=== PATIENT | male | born 1970 | race Two or more races ===

== ENCOUNTER 2023-07-10 12:02 | Inpatient (IN) | payer MEDICARE, OTHER ==
[~2023-07-10] VITALS: Ht 193 cm; Wt 184.4 kg
[2023-07-10] MEDS ORDERED: GABA-532 PO (13:01)
[2023-07-10] MEDS ORDERED: RIVA10TA PO (13:01)
[2023-07-10] MEDS ORDERED: HYDR-4076 PO (13:01)
[2023-07-10] MEDS ORDERED: ERGO500093 PO (13:01)
[2023-07-10] MEDS ORDERED: INSU100C10 SQ (13:01)
[2023-07-10] MEDS ORDERED: TAMS-12 PO (13:01)
[2023-07-10] MEDS ORDERED: CARV12.52 PO (13:01)
[2023-07-10] MEDS ORDERED: FLUT1BLS IH (13:01)
[2023-07-10] MEDS ORDERED: LOSA100T31 PO (13:01)
[2023-07-10] MEDS ORDERED: ASCO-352 PO (13:01)
[2023-07-10] MEDS ORDERED: SEMA1PEN SQ (13:01)
[2023-07-10] MEDS ORDERED: ZINC50TA69 PO (13:01)
[2023-07-10] MEDS ORDERED: TIOT18CA3 IH (13:01)
[2023-07-10] MEDS ORDERED: INSU100V27 SQ ×2 (13:01)
[2023-07-10] MEDS ORDERED: AMIO200T5 PO (13:01)
[2023-07-10] MEDS ORDERED: MULT-447 PO (13:01)
[2023-07-10] MEDS ORDERED: CYCL5TAB PO (13:01)
[2023-07-10] MEDS ORDERED: INSU100V7 SQ (13:01)
[2023-07-10] MEDS ORDERED: ACET-868 PO (13:01)
[2023-07-10] MEDS ORDERED: ALBU2.5V38 IH (13:01)
[2023-07-10] MEDS ORDERED: POLY17PO4 PO (13:01)
[2023-07-10] MEDS ORDERED: CLON1PAT TD (13:01)
[2023-07-10] MEDS ORDERED: FURO-144 PO (13:01)
[2023-07-10] MEDS ORDERED: ASPI-1169 PO (13:01)
[2023-07-10] MEDS ORDERED: HYDR-4077 PO (13:01)
[2023-07-10] MEDS ORDERED: XEROFORM (13:01)
[2023-07-10] MEDS ORDERED: ROSU20TA2 PO (13:01)
[2023-07-10] MEDS ORDERED: ONDA4TAB5 PO (13:01)
[2023-07-10] MEDS ORDERED: OXYC5TAB3 PO (13:01)
[2023-07-10] MEDS ORDERED: SENN-261 PO (13:01)
[2023-07-10] MEDS ORDERED: FAMO20TA8 PO (13:01)
[2023-07-10 13:30] LABS: BASOPHILS % (AUTO) 0.6 % (0.0-2.0); EOSINOPHILS # (AUTO) 0.1 K/uL (0.0-0.7); EOSINOPHILS % (AUTO) 2.4 % (0.0-6.0); HEMATOCRIT 34 % (39-51); HEMOGLOBIN 10.7 g/dL (13.5-17.5); LYMPHOCYTES # (AUTO) 0.4 K/uL (0.8-4.8); LYMPHOCYTES % (AUTO) 5.9 % (20.0-44.0); MEAN CORPUSCULAR HEMOGLOBIN 25 PG (26.0-33.0); MEAN CORPUSCULAR HGB CONC 31 g/dl (31.0-36.0); MEAN CORPUSCULAR VOLUME 81 fL (80-96); MONOCYTES # (AUTO) 0.5 K/uL (0.1-1.30); MONOCYTES % (AUTO) 8.7 % (2.0-12.0); NEUTROPHILS # (AUTO) 5.1 K/uL (1.8-8.9); NEUTROPHILS % (AUTO) 82.4 % (43.0-81.0); PLATELET COUNT (AUTO) 174 K/uL (150-450); RED BLOOD CELL COUNT(AUTO) 4.22 MIL/uL (4.5-6.0); RED CELL DISTRIBUTION WIDTH 17.2 % (11.5-15.0); WHITE BLOOD COUNT (AUTO) 6.2 K/uL (4.3-11.0)
[2023-07-10 13:47] LABS: INR 1.42 (0.91-1.10); PARTIAL THROMBOPLASTIN TIME 32.2 SEC (24.3-34.3); PROTHROMBIN TIME 14.7 SECS (9.2-11.1)
[2023-07-10 13:50] LABS: CALCIUM, SERUM 8.3 mg/dL (8.5-10.1); CREATININE 1.3 mg/dL (0.6-1.3)
[2023-07-10 13:56] LABS: ALBUMIN 3.2 g/dL (3.4-5.0); BILIRUBIN,DIRECT 0.4 mg/dL (0.0-0.2); TOTAL PROTEIN, SERUM 7.4 g/dL (6.4-8.2)
[2023-07-10] MEDS ORDERED: VANCOMYCIN 1 GM in IV D5W 250 ML IV ONE (15:00)
[2023-07-10] MEDS ORDERED: PIPERACILLIN /TAZOBACTAM 3.375 G in IV D5W 50 ML IV ONE (15:00)
[2023-07-10] MEDS ORDERED: Z GUARD REMEDY 4 OZ OINT TP PRN (17:00)
[2023-07-10] MEDS ORDERED: HYDROCODONE/APAP 5/325MG TABLET PO PRN (17:00)
[2023-07-10] MEDS ORDERED: ZOLPIDEM TARTRATE 5 MG TABLET PO PRN (17:00)
[2023-07-10] MEDS ORDERED: DEXTROSE 50%-WATER 50 ML DISP.SYRIN IV PRN (17:00)
[2023-07-10] MEDS ORDERED: ONDANSETRON HCL/PF 4 MG/2 ML VIAL IVP PRN (17:00)
[2023-07-10] MEDS ORDERED: MAG HYDROX/AL HYDROX/SIMETH 30 ML UDC PO PRN (17:00)
[2023-07-10] MEDS ORDERED: MAGNESIUM HYDROXIDE 30 ML UDC PO PRN (17:00)
[2023-07-10 18:09] LABS: PROTEIN, BODY FLUID 4.1 G/DL
[2023-07-10] MEDS: ACETAMINOPHEN 325 MG TABLET PO PRN (18:58)
[2023-07-10 19:19] LABS: APPEARANCE,URINE CLEAR (CLEAR); BILIRUBIN,URINE 1+ (NEGATIVE); BLOOD, URINE NEGATIVE Ery/uL (NEGATIVE); COLOR,URINE YELLOW (YELLOW); KETONES,URINE 1+ mg/dL (NEGATIVE); LEUKOCYTE ESTERASE ,URINE NEGATIVE (NEGATIVE); NITRITE, URINE NEGATIVE (NEGATIVE); PROTEIN,URINE 1+ mg/dl (NEGATIVE); UGLUCOSE NEGATIVE (NEGATIVE)
[2023-07-10 19:46] LABS: APPEARANCE,SPUN,BODY FLUID CLEAR (CLEAR); TOTAL VOLUME,BODY FLUID 2950 mL
[2023-07-10 19:47] LABS: WBC, BODY FLUID 478 /cu. mm. (0-200)
[2023-07-10 19:56] LABS: MACROPHAGES, BODY FLUID 22; MONOCYTES,BODY FLUID 2 %; POLYNUCLEAR, BODY FLUID 18 % (0-25)
[2023-07-10 20:12] LABS: ADD URINE CULTURE NO; BACTERIA,URINE None seen /HPF (None Seen); FINE GRANULAR CASTS,URINE Few /LPF (None Seen); MUCUS,URINE Few /LPF (None Seen); RBC,URINE 0-2 /HPF (0-2); SQUAMOUS EPITHELIAL CELL,UR None Seen /HPF (None Seen); WBC,URINE NONE SEEN /HPF (0-3); YEAST,URINE None Seen /HPF (None Seen)
[2023-07-10 23:30] VITALS: BP 124/83; TEMP 98.2; O2SAT 95
[2023-07-11] VITALS (7 sets, daily range): BP systolic 115–153; BP diastolic 91–99; TEMP 98.1–98.2; O2SAT 94–99
[2023-07-11] MEDS ORDERED: PIPERACI/TAZO 3.375GM/D5W 50ML PB IV ONE ×2 (00:10→05:07)
[2023-07-11] MEDS: BLOOD SUGAR DIAGNOSTIC 1 EACH STRIP VI SCH ×5 (00:13→21:52)
[2023-07-11] MEDS: ZOSYN IVPB 3.375 G in IV D5W 50ml IV SCH ×4 (00:13→17:33)
[2023-07-11] MEDS: *INSULIN REGULAR(HUMULIN R)HUM 100 UNIT/ML VIAL SQ PRN (00:14)
[2023-07-11] MEDS ORDERED: VANCOMYCIN 1.25 GM in IV D5W 250 ML IV SCH (03:00)
[2023-07-11] MEDS ORDERED: VANCOMYCIN 1 GM /D5W 250 ML PB IV ONE (03:13)
[2023-07-11] MEDS: ACETAMINOPHEN 325 MG TABLET PO PRN (06:27)
[2023-07-11] MEDS: INSULIN REGULAR, HUMAN 100 UNIT/ML 3 ML VIAL SQ PRN ×2 (06:47→17:36)
[2023-07-11 06:49] LABS: BASOPHILS % (AUTO) 0.5 % (0.0-2.0); EOSINOPHILS # (AUTO) 0.2 K/uL (0.0-0.7); EOSINOPHILS % (AUTO) 2.8 % (0.0-6.0); HEMATOCRIT 33 % (39-51); HEMOGLOBIN 10.5 g/dL (13.5-17.5); LYMPHOCYTES # (AUTO) 0.4 K/uL (0.8-4.8); LYMPHOCYTES % (AUTO) 6.8 % (20.0-44.0); MEAN CORPUSCULAR HEMOGLOBIN 26 PG (26.0-33.0); MEAN CORPUSCULAR HGB CONC 32 g/dl (31.0-36.0); MEAN CORPUSCULAR VOLUME 80 fL (80-96); MONOCYTES # (AUTO) 0.4 K/uL (0.1-1.30); MONOCYTES % (AUTO) 6.5 % (2.0-12.0); NEUTROPHILS # (AUTO) 5.1 K/uL (1.8-8.9); NEUTROPHILS % (AUTO) 83.4 % (43.0-81.0); PLATELET COUNT (AUTO) 182 K/uL (150-450); RED BLOOD CELL COUNT(AUTO) 4.12 MIL/uL (4.5-6.0); RED CELL DISTRIBUTION WIDTH 16.7 % (11.5-15.0); WHITE BLOOD COUNT (AUTO) 6.2 K/uL (4.3-11.0)
[2023-07-11 07:34] LABS: CALCIUM, SERUM 8.3 mg/dL (8.5-10.1); CREATININE 1.5 mg/dL (0.6-1.3); PHOSPHORUS 2.8 mg/dL (2.5-4.9); POTASSIUM 3.2 mmol/L (3.5-5.1)
[2023-07-11] MEDS: PANTOPRAZOLE 40 MG TABLET.DR PO SCH (09:32)
[2023-07-11] MEDS: ENOXAPARIN SODIUM 40 MG/0.4 ML DISP.SYRIN SQ SCH (09:37)
[2023-07-11] MEDS ORDERED: ALBUTEROL FS 2.5 MG/3 ML VIAL.NEB NEB PRN (10:00)
[2023-07-11] MEDS ORDERED: hydrALAZINE HCL 25 MG TABLET PO PRN (10:00)
[2023-07-11 11:27] LABS: THYROID STIMULATING HORMONE 2.581 uIU/mL (0.358-3.74)
[2023-07-11] MEDS: FUROSEMIDE 40 MG/4 ML VIAL IV SCH ×3 (11:31→17:44)
[2023-07-11] MEDS: AMIODARONE HCL 200 MG TABLET PO SCH (11:33)
[2023-07-11] MEDS: FAMOTIDINE (20 MG) 20 MG TABLET PO PRN (11:33)
[2023-07-11] MEDS: ASPIRIN 81 MG TAB.CHEW PO SCH (11:33)
[2023-07-11] MEDS: CARVEDILOL 12.5 MG TABLET PO SCH ×2 (11:33→17:34)
[2023-07-11] MEDS: POTASSIUM CHLORIDE 20 MEQ TAB.PRT.SR PO SCH ×3 (11:34→13:41)
[2023-07-11] MEDS: hydrALAZINE HCL 50 MG TABLET PO SCH ×2 (11:34→17:34)
[2023-07-11] MEDS: TAMSULOSIN 0.4 MG CAP.SR.24H PO SCH ×2 (11:37→17:34)
[2023-07-11] MEDS: MUPIROCIN OINT 2% 22 GM TUBE TP SCH (11:58)
[2023-07-11] MEDS: FLUTICASONE/VILANTEROL 1 EACH BLST.W.DEV IH SCH (11:58)
[2023-07-11] MEDS: DAKINS QUARTER STRENGTH (0.125%) 480 ML BOTTLE TOP SCH (13:42)
[2023-07-11] MEDS: GABAPENTIN 300 MG CAPSULE PO SCH ×2 (13:42→17:34)
[2023-07-11] MEDS: VANCOMYCIN 1 GM in IV D5W 250 ML IV SCH (14:51)
[2023-07-11] MEDS: RIVAROXABAN 10 MG TABLET PO SCH (17:35)
[2023-07-11] MEDS: IPRATROPIUM NEB FS 0.5 MG/2.5 ML AMPUL.NEB NEB SCH (20:46)
[2023-07-11] MEDS: ATORVASTATIN 40 MG TABLET PO SCH (21:52)
[2023-07-12] VITALS (10 sets, daily range): BP systolic 111–146; BP diastolic 74–100; TEMP 98.4–99; O2SAT 93–100
[2023-07-12] MEDS: ZOSYN IVPB 3.375 G in IV D5W 50ml IV SCH ×4 (00:06→18:29)
[2023-07-12] MEDS: IPRATROPIUM NEB FS 0.5 MG/2.5 ML AMPUL.NEB NEB SCH ×4 (01:37→20:11)
[2023-07-12 02:37] LABS: BASOPHILS # (AUTO) 0.1 K/uL (0.0-0.2); BASOPHILS % (AUTO) 0.8 % (0.0-2.0); EOSINOPHILS # (AUTO) 0.2 K/uL (0.0-0.7); EOSINOPHILS % (AUTO) 2.5 % (0.0-6.0); HEMATOCRIT 36 % (39-51); HEMOGLOBIN 11.1 g/dL (13.5-17.5); LYMPHOCYTES # (AUTO) 0.5 K/uL (0.8-4.8); LYMPHOCYTES % (AUTO) 8.1 % (20.0-44.0); MEAN CORPUSCULAR HEMOGLOBIN 26 PG (26.0-33.0); MEAN CORPUSCULAR HGB CONC 31 g/dl (31.0-36.0); MEAN CORPUSCULAR VOLUME 84 fL (80-96); MONOCYTES # (AUTO) 0.6 K/uL (0.1-1.30); MONOCYTES % (AUTO) 8.8 % (2.0-12.0); NEUTROPHILS # (AUTO) 5.1 K/uL (1.8-8.9); NEUTROPHILS % (AUTO) 79.8 % (43.0-81.0); PLATELET COUNT (AUTO) 180 K/uL (150-450); RED BLOOD CELL COUNT(AUTO) 4.33 MIL/uL (4.5-6.0); RED CELL DISTRIBUTION WIDTH 18.1 % (11.5-15.0); WHITE BLOOD COUNT (AUTO) 6.4 K/uL (4.3-11.0)
[2023-07-12 02:49] LABS: ALBUMIN 3.1 g/dL (3.4-5.0); BILIRUBIN,TOTAL 0.8 mg/dL (0.2-1.0); CALCIUM, SERUM 8.1 mg/dL (8.5-10.1); CREATININE 1.5 mg/dL (0.6-1.3); MAGNESIUM 1.9 mg/dL (1.8-2.4); PHOSPHORUS 2.9 mg/dL (2.5-4.9); POTASSIUM 3.6 mmol/L (3.5-5.1); TOTAL PROTEIN, SERUM 7.4 g/dL (6.4-8.2)
[2023-07-12] MEDS: VANCOMYCIN 1 GM in IV D5W 250 ML IV SCH ×2 (03:36→15:31)
[2023-07-12 05:08] LABS: *SPE A/G RATIO 0.7 (0.7-1.7); *SPE ALBUMIN 2.8 g/dL (2.9-4.4); *SPE ALPHA-1-GLOBULIN 0.4 g/dL (0.0-0.4); *SPE ALPHA-2-GLOBULIN 0.8 g/dL (0.4-1.0); *SPE M-SPIKE Not Observed g/dL (Not Observed); *SPE PROTEIN TOTAL 6.8 g/dL (6.0-8.5); *SPEGAMMA GLOBULIN 1.7 g/dL (0.4-1.8)
[2023-07-12] MEDS: BLOOD SUGAR DIAGNOSTIC 1 EACH STRIP VI SCH ×4 (06:08→21:27)
[2023-07-12] MEDS: INSULIN REGULAR, HUMAN 100 UNIT/ML 3 ML VIAL SQ PRN ×3 (06:56→18:14)
[2023-07-12] MEDS: ENOXAPARIN SODIUM 40 MG/0.4 ML DISP.SYRIN SQ SCH (10:15)
[2023-07-12] MEDS: ASPIRIN 81 MG TAB.CHEW PO SCH (10:18)
[2023-07-12] MEDS: AMIODARONE HCL 200 MG TABLET PO SCH (10:19)
[2023-07-12] MEDS: GABAPENTIN 300 MG CAPSULE PO SCH ×3 (10:19→18:27)
[2023-07-12] MEDS: FAMOTIDINE (20 MG) 20 MG TABLET PO PRN (10:19)
[2023-07-12] MEDS: TAMSULOSIN 0.4 MG CAP.SR.24H PO SCH ×2 (10:19→18:27)
[2023-07-12] MEDS: CARVEDILOL 12.5 MG TABLET PO SCH ×2 (10:20→18:27)
[2023-07-12] MEDS: LOSARTAN POTASSIUM 50 MG TABLET PO SCH (10:20)
[2023-07-12] MEDS: PANTOPRAZOLE 40 MG TABLET.DR PO SCH (10:20)
[2023-07-12] MEDS: FLUTICASONE/VILANTEROL 1 EACH BLST.W.DEV IH SCH (10:33)
[2023-07-12] MEDS: MUPIROCIN OINT 2% 22 GM TUBE TP SCH (10:36)
[2023-07-12] MEDS: DAKINS QUARTER STRENGTH (0.125%) 480 ML BOTTLE TOP SCH (10:36)
[2023-07-12] MEDS: hydrALAZINE HCL 50 MG TABLET PO SCH ×2 (13:00→18:36)
[2023-07-12] MEDS: RIVAROXABAN 10 MG TABLET PO SCH (18:26)
[2023-07-12] MEDS: ATORVASTATIN 40 MG TABLET PO SCH (21:26)
[2023-07-12] MEDS: *INSULIN REGULAR(HUMULIN R)HUM 100 UNIT/ML VIAL SQ PRN (21:59)
[2023-07-13] VITALS (7 sets, daily range): BP systolic 103–115; BP diastolic 76–90; TEMP 97.6–98.6; O2SAT 92–99
[2023-07-13] MEDS: ZOSYN IVPB 3.375 G in IV D5W 50ml IV SCH ×5 (00:11→23:20)
[2023-07-13] MEDS: IPRATROPIUM NEB FS 0.5 MG/2.5 ML AMPUL.NEB NEB SCH ×4 (01:30→19:20)
[2023-07-13] MEDS: VANCOMYCIN 1 GM in IV D5W 250 ML IV SCH ×2 (03:23→15:44)
[2023-07-13] MEDS: BLOOD SUGAR DIAGNOSTIC 1 EACH STRIP VI SCH ×4 (07:33→22:47)
[2023-07-13] MEDS: INSULIN REGULAR, HUMAN 100 UNIT/ML 3 ML VIAL SQ PRN ×2 (07:34→16:36)
[2023-07-13 07:37] LABS: CALCIUM, SERUM 8.1 mg/dL (8.5-10.1); CREATININE 1.6 mg/dL (0.6-1.3); POTASSIUM 3.2 mmol/L (3.5-5.1)
[2023-07-13] MEDS: ENOXAPARIN SODIUM 40 MG/0.4 ML DISP.SYRIN SQ SCH (08:09)
[2023-07-13] MEDS: GABAPENTIN 300 MG CAPSULE PO SCH ×3 (08:10→16:16)
[2023-07-13] MEDS: PANTOPRAZOLE 40 MG TABLET.DR PO SCH (08:10)
[2023-07-13] MEDS: TAMSULOSIN 0.4 MG CAP.SR.24H PO SCH ×2 (08:10→16:16)
[2023-07-13] MEDS: ASPIRIN 81 MG TAB.CHEW PO SCH (08:11)
[2023-07-13] MEDS: AMIODARONE HCL 200 MG TABLET PO SCH (08:11)
[2023-07-13] MEDS: FLUTICASONE/VILANTEROL 1 EACH BLST.W.DEV IH SCH (08:37)
[2023-07-13] MEDS: hydrALAZINE HCL 50 MG TABLET PO SCH ×2 (09:00→16:17)
[2023-07-13] MEDS: LOSARTAN POTASSIUM 50 MG TABLET PO SCH (09:00)
[2023-07-13] MEDS: CARVEDILOL 12.5 MG TABLET PO SCH ×2 (09:00→16:17)
[2023-07-13] MEDS: MUPIROCIN OINT 2% 22 GM TUBE TP SCH (09:48)
[2023-07-13] MEDS: DAKINS QUARTER STRENGTH (0.125%) 480 ML BOTTLE TOP SCH (09:48)
[2023-07-13] MEDS ORDERED: POTASSIUM CHLORIDE 10 MEQ TABLET.SA PO ONE (11:00)
[2023-07-13] MEDS: SOD FERRIC GLUC 125 MG in IV NS 0.9% 100 ML IV SCH (14:38)
[2023-07-13] MEDS: RIVAROXABAN 10 MG TABLET PO SCH (17:18)
[2023-07-13] MEDS: ATORVASTATIN 40 MG TABLET PO SCH (22:46)
[2023-07-13] MEDS: *INSULIN REGULAR(HUMULIN R)HUM 100 UNIT/ML VIAL SQ PRN (22:51)
[2023-07-14] VITALS (12 sets, daily range): BP systolic 126–140; BP diastolic 89–98; TEMP 93.6–98.2; O2SAT 86–99
[2023-07-14] MEDS: IPRATROPIUM NEB FS 0.5 MG/2.5 ML AMPUL.NEB NEB SCH ×4 (00:38→20:14)
[2023-07-14] MEDS: VANCOMYCIN 1 GM in IV D5W 250 ML IV SCH ×2 (03:43→16:39)
[2023-07-14] MEDS: ZOSYN IVPB 3.375 G in IV D5W 50ml IV SCH ×4 (05:55→23:55)
[2023-07-14] MEDS: BLOOD SUGAR DIAGNOSTIC 1 EACH STRIP VI SCH ×4 (06:36→21:40)
[2023-07-14] MEDS: INSULIN REGULAR, HUMAN 100 UNIT/ML 3 ML VIAL SQ PRN ×3 (06:40→17:39)
[2023-07-14 08:17] LABS: CALCIUM, SERUM 8.6 mg/dL (8.5-10.1); CREATININE 1.6 mg/dL (0.6-1.3); POTASSIUM 3.6 mmol/L (3.5-5.1)
[2023-07-14] MEDS: CARVEDILOL 12.5 MG TABLET PO SCH ×3 (08:40→17:37)
[2023-07-14] MEDS: TAMSULOSIN 0.4 MG CAP.SR.24H PO SCH ×2 (08:40→17:33)
[2023-07-14] MEDS: ASPIRIN 81 MG TAB.CHEW PO SCH (08:40)
[2023-07-14] MEDS: PANTOPRAZOLE 40 MG TABLET.DR PO SCH (08:40)
[2023-07-14] MEDS: FAMOTIDINE (20 MG) 20 MG TABLET PO PRN (08:41)
[2023-07-14] MEDS: LOSARTAN POTASSIUM 50 MG TABLET PO SCH (08:41)
[2023-07-14] MEDS: GABAPENTIN 300 MG CAPSULE PO SCH ×3 (08:41→17:33)
[2023-07-14] MEDS: AMIODARONE HCL 200 MG TABLET PO SCH (08:41)
[2023-07-14] MEDS: DAKINS QUARTER STRENGTH (0.125%) 480 ML BOTTLE TOP SCH (08:42)
[2023-07-14] MEDS: FLUTICASONE/VILANTEROL 1 EACH BLST.W.DEV IH SCH (08:43)
[2023-07-14] MEDS: ENOXAPARIN SODIUM 40 MG/0.4 ML DISP.SYRIN SQ SCH (08:47)
[2023-07-14] MEDS: hydrALAZINE HCL 50 MG TABLET PO SCH ×2 (08:47→17:36)
[2023-07-14] MEDS: MUPIROCIN OINT 2% 22 GM TUBE TP SCH (10:02)
[2023-07-14] MEDS: SOD FERRIC GLUC 125 MG in IV NS 0.9% 100 ML IV SCH (15:30)
[2023-07-14] MEDS: RIVAROXABAN 10 MG TABLET PO SCH (17:36)
[2023-07-14] MEDS: ATORVASTATIN 40 MG TABLET PO SCH (21:39)
[2023-07-14] MEDS: *INSULIN REGULAR(HUMULIN R)HUM 100 UNIT/ML VIAL SQ PRN (21:43)
[2023-07-15] VITALS (9 sets, daily range): BP systolic 131–146; BP diastolic 86–94; TEMP 97.3–98.1; O2SAT 90–100
[2023-07-15] MEDS: IPRATROPIUM NEB FS 0.5 MG/2.5 ML AMPUL.NEB NEB SCH ×4 (01:30→20:11)
[2023-07-15] MEDS: VANCOMYCIN 1 GM in IV D5W 250 ML IV SCH ×2 (03:08→15:09)
[2023-07-15] MEDS: ZOSYN IVPB 3.375 G in IV D5W 50ml IV SCH ×4 (06:05→23:03)
[2023-07-15] MEDS: BLOOD SUGAR DIAGNOSTIC 1 EACH STRIP VI SCH ×4 (06:15→22:12)
[2023-07-15] MEDS: INSULIN REGULAR, HUMAN 100 UNIT/ML 3 ML VIAL SQ PRN ×3 (06:19→16:57)
[2023-07-15 07:24] LABS: CALCIUM, SERUM 8.4 mg/dL (8.5-10.1); CREATININE 1.6 mg/dL (0.6-1.3); POTASSIUM 3.7 mmol/L (3.5-5.1)
[2023-07-15] MEDS: ENOXAPARIN SODIUM 40 MG/0.4 ML DISP.SYRIN SQ SCH (08:52)
[2023-07-15] MEDS: PANTOPRAZOLE 40 MG TABLET.DR PO SCH (08:54)
[2023-07-15] MEDS: LOSARTAN POTASSIUM 50 MG TABLET PO SCH (08:54)
[2023-07-15] MEDS: GABAPENTIN 300 MG CAPSULE PO SCH ×3 (08:54→17:12)
[2023-07-15] MEDS: TAMSULOSIN 0.4 MG CAP.SR.24H PO SCH ×2 (08:54→17:12)
[2023-07-15] MEDS: ASPIRIN 81 MG TAB.CHEW PO SCH (08:54)
[2023-07-15] MEDS: hydrALAZINE HCL 50 MG TABLET PO SCH ×2 (08:54→17:12)
[2023-07-15] MEDS: CARVEDILOL 12.5 MG TABLET PO SCH ×2 (08:55→17:13)
[2023-07-15] MEDS: AMIODARONE HCL 200 MG TABLET PO SCH (08:55)
[2023-07-15] MEDS: DAKINS QUARTER STRENGTH (0.125%) 480 ML BOTTLE TOP SCH (08:56)
[2023-07-15] MEDS: FLUTICASONE/VILANTEROL 1 EACH BLST.W.DEV IH SCH (08:56)
[2023-07-15] MEDS: MUPIROCIN OINT 2% 22 GM TUBE TP SCH (08:59)
[2023-07-15] MEDS: SOD FERRIC GLUC 125 MG in IV NS 0.9% 100 ML IV SCH (14:08)
[2023-07-15] MEDS: RIVAROXABAN 10 MG TABLET PO SCH (17:13)
[2023-07-15] MEDS: ATORVASTATIN 40 MG TABLET PO SCH (21:24)
[2023-07-15] MEDS: *INSULIN REGULAR(HUMULIN R)HUM 100 UNIT/ML VIAL SQ PRN (22:11)
[2023-07-16] MEDS: IPRATROPIUM NEB FS 0.5 MG/2.5 ML AMPUL.NEB NEB SCH ×4 (01:30→19:30)
[2023-07-16] MEDS: VANCOMYCIN 1 GM in IV D5W 250 ML IV SCH ×2 (02:35→15:43)
[2023-07-16] MEDS: ZOSYN IVPB 3.375 G in IV D5W 50ml IV SCH ×4 (06:07→23:06)
[2023-07-16] MEDS: ACETAMINOPHEN 325 MG TABLET PO PRN (06:07)
[2023-07-16] MEDS: BLOOD SUGAR DIAGNOSTIC 1 EACH STRIP VI SCH ×4 (06:31→22:57)
[2023-07-16] MEDS: INSULIN REGULAR, HUMAN 100 UNIT/ML 3 ML VIAL SQ PRN ×3 (06:32→17:28)
[2023-07-16 07:30] VITALS: BP 113/60; TEMP 98.2; O2SAT 91
[2023-07-16 07:35] LABS: CALCIUM, SERUM 8.5 mg/dL (8.5-10.1); CREATININE 1.6 mg/dL (0.6-1.3); POTASSIUM 3.7 mmol/L (3.5-5.1)
[2023-07-16] MEDS: PANTOPRAZOLE 40 MG TABLET.DR PO SCH (07:51)
[2023-07-16] MEDS: FLUTICASONE/VILANTEROL 1 EACH BLST.W.DEV IH SCH (09:48)
[2023-07-16] MEDS: TAMSULOSIN 0.4 MG CAP.SR.24H PO SCH ×2 (09:49→17:33)
[2023-07-16] MEDS: hydrALAZINE HCL 50 MG TABLET PO SCH ×2 (09:49→17:33)
[2023-07-16] MEDS: LOSARTAN POTASSIUM 50 MG TABLET PO SCH (09:49)
[2023-07-16] MEDS: GABAPENTIN 300 MG CAPSULE PO SCH ×3 (09:50→17:32)
[2023-07-16] MEDS: ASPIRIN 81 MG TAB.CHEW PO SCH (09:50)
[2023-07-16] MEDS: AMIODARONE HCL 200 MG TABLET PO SCH (09:50)
[2023-07-16] MEDS: CARVEDILOL 12.5 MG TABLET PO SCH ×2 (09:50→17:33)
[2023-07-16] MEDS: ENOXAPARIN SODIUM 40 MG/0.4 ML DISP.SYRIN SQ SCH (09:51)
[2023-07-16] MEDS: DAKINS QUARTER STRENGTH (0.125%) 480 ML BOTTLE TOP SCH (09:52)
[2023-07-16] MEDS: MUPIROCIN OINT 2% 22 GM TUBE TP SCH (09:52)
[2023-07-16 13:05] VITALS: O2SAT 98
[2023-07-16 13:17] VITALS: O2SAT 100
[2023-07-16] MEDS: SOD FERRIC GLUC 125 MG in IV NS 0.9% 100 ML IV SCH (13:52)
[2023-07-16 16:00] VITALS: BP 138/74; TEMP 97.5; O2SAT 93
[2023-07-16] MEDS: RIVAROXABAN 10 MG TABLET PO SCH (17:34)
[2023-07-16 20:00] VITALS: BP 115/75; TEMP 98.8; O2SAT 93
[2023-07-16 21:39] VITALS: BP 115/75; TEMP 98.8; O2SAT 93
[2023-07-16] MEDS: ATORVASTATIN 40 MG TABLET PO SCH (22:03)
[2023-07-16] MEDS: *INSULIN REGULAR(HUMULIN R)HUM 100 UNIT/ML VIAL SQ PRN (23:00)
[2023-07-17] MEDS: IPRATROPIUM NEB FS 0.5 MG/2.5 ML AMPUL.NEB NEB SCH ×3 (01:30→12:46)
[2023-07-17 02:25] LABS: CALCIUM, SERUM 8.4 mg/dL (8.5-10.1); CREATININE 1.7 mg/dL (0.6-1.3); POTASSIUM 3.7 mmol/L (3.5-5.1)
[2023-07-17] MEDS: VANCOMYCIN 1 GM in IV D5W 250 ML IV SCH (03:00)
[2023-07-17] MEDS: ZOSYN IVPB 3.375 G in IV D5W 50ml IV SCH ×2 (05:35→11:48)
[2023-07-17] MEDS: INSULIN REGULAR, HUMAN 100 UNIT/ML 3 ML VIAL SQ PRN ×2 (06:37→11:40)
[2023-07-17 07:00] VITALS: BP 142/70; TEMP 98.1; O2SAT 94
[2023-07-17 07:24] VITALS: O2SAT 97
[2023-07-17] MEDS ORDERED: BUMETANIDE INJ 3 MG in IV NS 0.9% 48 ML IV ONE (07:30)
[2023-07-17] MEDS: BLOOD SUGAR DIAGNOSTIC 1 EACH STRIP VI SCH ×2 (07:41→11:30)
[2023-07-17] MEDS: PANTOPRAZOLE 40 MG TABLET.DR PO SCH (08:42)
[2023-07-17] MEDS: GABAPENTIN 300 MG CAPSULE PO SCH ×2 (08:42→12:43)
[2023-07-17] MEDS: TAMSULOSIN 0.4 MG CAP.SR.24H PO SCH (08:42)
[2023-07-17] MEDS: hydrALAZINE HCL 50 MG TABLET PO SCH (08:43)
[2023-07-17] MEDS: CARVEDILOL 12.5 MG TABLET PO SCH (08:43)
[2023-07-17] MEDS: AMIODARONE HCL 200 MG TABLET PO SCH (08:43)
[2023-07-17] MEDS: FLUTICASONE/VILANTEROL 1 EACH BLST.W.DEV IH SCH (08:45)
[2023-07-17] MEDS: ENOXAPARIN SODIUM 40 MG/0.4 ML DISP.SYRIN SQ SCH (08:46)
[2023-07-17] MEDS: ASPIRIN 81 MG TAB.CHEW PO SCH (08:48)
[2023-07-17] MEDS ORDERED: CLONIDINE HCL 0.1MG/24H PTWK 1 EA PATCH TD SCH (09:00)
[2023-07-17 09:02] VITALS: BP 142/70
[2023-07-17] MEDS: DAKINS QUARTER STRENGTH (0.125%) 480 ML BOTTLE TOP SCH (09:03)
[2023-07-17] MEDS: MUPIROCIN OINT 2% 22 GM TUBE TP SCH (09:04)
[2023-07-17] MEDS ORDERED: CARV12.52 PO (12:38)
[2023-07-17 12:46] VITALS: O2SAT 94
== END 2023-07-17 15:30 | DRG 423 ==
LOC: ER 12:06 → MED 23:00 → TELE 23:36 → MED 07-13 12:07
PROVIDERS: ATTEND Nurse Practitioner Acute Care
PROC: 0W9G3ZZ Drainage of Peritoneal Cavity, Percutaneous Approach (ICD-10-PCS; 2023-07-10)
PROC: 0JBQ0ZZ Excision of Right Foot Subcutaneous Tissue and Fascia, Open Approach (ICD-10-PCS; principal; 2023-07-11)
PROC: 0HDMXZZ Extraction of Right Foot Skin, External Approach (ICD-10-PCS; 2023-07-15)
DX: K74.60 Unspecified cirrhosis of liver (principal); I21.A1 Myocardial infarction type 2; J15.69 Pneumonia due to other Gram-negative bacteria; J44.0 Chronic obstructive pulmonary disease with (acute) lower respiratory infection; L03.115 Cellulitis of right lower limb; R18.8 Other ascites; K76.6 Portal hypertension; N17.9 Acute kidney failure, unspecified; I13.0 Hypertensive heart and chronic kidney disease with heart failure and stage 1 through stage 4 chronic kidney disease, or unspecified chronic kidney disease; D68.69 Other thrombophilia; Z68.42 Body mass index [BMI] 45.0-49.9, adult; L97.418 Non-pressure chronic ulcer of right heel and midfoot with other specified severity; E11.22 Type 2 diabetes mellitus with diabetic chronic kidney disease; S91.301A Unspecified open wound, right foot, initial encounter; X58.XXXA Exposure to other specified factors, initial encounter; Y93.9 Activity, unspecified; Y92.89 Other specified places as the place of occurrence of the external cause; E11.42 Type 2 diabetes mellitus with diabetic polyneuropathy; E78.5 Hyperlipidemia, unspecified; G47.33 Obstructive sleep apnea (adult) (pediatric); I25.10 Atherosclerotic heart disease of native coronary artery without angina pectoris; I25.2 Old myocardial infarction; I48.91 Unspecified atrial fibrillation; K21.9 Gastro-esophageal reflux disease without esophagitis; N18.9 Chronic kidney disease, unspecified; Z79.01 Long term (current) use of anticoagulants; Z79.51 Long term (current) use of inhaled steroids; Z79.4 Long term (current) use of insulin; R09.02 Hypoxemia; Z89.411 Acquired absence of right great toe; K76.0 Fatty (change of) liver, not elsewhere classified; I50.9 Heart failure, unspecified; M10.9 Gout, unspecified; E66.01 Morbid (severe) obesity due to excess calories; E61.1 Iron deficiency; S81.801A Unspecified open wound, right lower leg, initial encounter; E11.51 Type 2 diabetes mellitus with diabetic peripheral angiopathy without gangrene; N40.0 Benign prostatic hyperplasia without lower urinary tract symptoms; Z20.822 Contact with and (suspected) exposure to COVID-19; E11.621 Type 2 diabetes mellitus with foot ulcer
CPT/HCPCS: 36415; 49083; 71045-TC; 76705-TC; 80048-TC; 80053-TC; 80061-TC; 80076-TC; 80202-TC; 81001; 82140-TC; 82728-TC; 82962-TC; 83540-TC; 83605-TC; 83690-TC; 83735-TC; 83880; 84100-TC; 84155; 84165; 84439-TC; 84443-TC; 84484-TC; 85025-TC; 85730-TC; 87040-TC; 89051-TC; 94799-TC; 97110-TC; 97530-TC; A4223; A6403; G0378; J1650; J1815; J1940; J2543; J2916; J3370; J3490; J7030; J7050; J7060